=== PATIENT | male | born 1995 | race African-American/Black ===

== ENCOUNTER 2017-04-12 01:41 | Emergency (ER) | payer BC ==
[~2017-04-12] VITALS: Ht 185.4 cm; Wt 77.1 kg
[2017-04-12 06:50] VITALS: BP 133/74
== END 2017-04-12 06:57 | disposition home or self-care (01) ==
LOC: ER 01:53
DX: F41.9 Anxiety disorder, unspecified (principal)
CPT/HCPCS: 71020; 93005; 99284